=== PATIENT | female | born 1960 ===

== ENCOUNTER 2021-01-13 14:48 | Emergency (ER) | payer OTHER ==
[2021-01-13] MEDS ORDERED: Sodium Chloride 0.9% 10 ML Syringe FLUSH PRN (15:09)
[2021-01-13] MEDS ORDERED: Sodium Chloride 0.9% 2.5 ML Syringe FLUSH PRN (15:09)
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
[2021-01-13 18:49] LABS: BLOOD UREA NITROGEN,BUN 13 mg/dL (7.0-18.0); CARBON DIOXIDE,CO2 28.4 mmol/L (21.0-32.0); CHLORIDE,CL 105 mmol/L (98-107); GLUCOSE RANDOM 115 mg/dL (74-106); POTASSIUM,K 3.8 mmol/L (3.5-5.1); SODIUM,NA 141 mmol/L (136-145)
== END 2021-01-13 19:41 | disposition left against medical advice (07) ==
LOC: MW.ED 14:48
DX: R55 Syncope and collapse (principal)
CPT/HCPCS: 36415; 80053; 81003; 84484; 85025; 93005; 99284-25